=== PATIENT | male | born 1950 | race Caucasian/White ===

== ENCOUNTER 2017-04-13 12:08 | Observation (INO) | payer OTHER ==
[~2017-04-13] VITALS: Ht 177.8 cm; Wt 89.1 kg
[2017-04-13 12:12] VITALS: BP 153/89; PULSE 62; RESP 18; O2SAT 98
--- NOTE | 2017-04-13 12:27 | ED.REPORT ---
HPI-Extremity Problem Upper Date of Service Apr 13, 2017 ED Provider: Kirill Yang MD History of Present Illness: Patient is sent in from the office by the orthopedist Dr. Nina for admission to the hospitalist service for IV antibiotics Pt is a generally healthy 66 y/o male w/ a hx of MRSA presenting to the ED c/o left elbow redness, swelling, and pain onset 5 days ago. He denies any recent trauma or apparent injury or other cause of his symptoms. The patient went to see orthopedist Dr. Nina earlier today who took wound cultures and told the patient to come to the ED for admission with plan for IV antibiotics. He had something similar occur in a right finger before. Pt denies fever, chills, diaphoresis, numbness or weakness of the arm. He denies recent antibiotic use or infection otherwise. The patient is right-handed. He has been experiencing ongoing orthopnea for which he has spoken with his PCP Dr. Stanton about for which he was referred to cardiology for an echocardiogram. Nursing Notes Stated Complaint: ELBOW CELLULITIS Chief Complaint: Extremity Trauma Nursing Notes Reviewed: Yes ([employer] not reconciled) Allergies: Coded Allergies: cephalexin (Verified Allergy, Unknown, 04/13/17) latex (Verified Allergy, Unknown, PROLONGED EXPOSURE, 08/28/09) tetracycline (Verified Allergy, Unknown, 08/28/09) General Time Seen by MD: 12:25 Chief Complaint Other (L elbow infection) Hx Obtained From: Patient Arrived By: Walk-in Onset Occurred: 5 days ago Symptom Duration: Since onset Location: : Elbow left Quality: Painful Severity: Current: Mild Severity: Maximum: Moderate Recent Healthcare: No recent hospitalization, Recent doctor visit Similar Sx Previous: No Past Medical History Past Medical History Hx MRSA Asthma Arthritis Past Surgical History Hernia Partial finger amputation Smoking History Never Smoker Social History Alcohol Use: 1-3 per week Drug Use: Denies drug use Ambulatory Status Independent Review of Systems Basic Review of Systems Respiratory: No shortness of breath, No cough, No wheeze GI: No abdominal pain, No nausea, No vomiting Hematologic: No bleeding, No bruising Constitutional: Denies: Chills, Fever Musculoskeletal: Reports: Joint pain, Joint swelling Skin: Reports Rash, Reports Swelling, Denies Diaphoresis, Denies Itching Neurologic: Denies: Numbness, Weakness Complete sys rev & neg: except as marked. Cardiovascular: Reports: Orthopnea, Denies: Chest pain Physical Exam Initial Vital Signs Vital Signs (First) Date Time Temp Pulse Resp B/P Pulse Ox O2 Delivery O2 Flow Rate FiO2 04/13/17 12:12 36.3 62 18 153/89 98 Initial VS: Reviewed, Vital signs normal Head / Eyes: Atraumatic, Normocephalic, PERRL ENT: Mucous membranes moist, Conjunctiva normal, No scleral icterus Neck: Supple, Full range of motion Respiratory: Breath sounds normal, Clear to auscultation, No respiratory distress Cardiovascular: Regular rate & rhythm, Heart sounds normal, Intact distal pulses Abdomen / GI: Soft, No distention Lower Extremities: Vascular intact, Neuro intact, No swelling, No tenderness Skin: Warm, Dry, No cyanosis Neurologic: Alert, Oriented, Nonfocal Psychiatric: Mood/affect normal, Behavior normal, Normal thought content General/Constitutional: Awake, Alert, No acute distress, Well appearing, Cooperative, Not toxic appearing Upper Extremity / MS: Atraumatic, Full range of motion, No snuffbox tenderness , No deformity, Neurologic intact, Vascular intact, No compartment syndrome, No clubbing/cyanosis Moderate septic bursa on left with surrounding cellulitis. Tapped by ortho earlier today. No signs of retained FB. Interpretation & Diagnostics Lab Results Interpretation Result Diagram: 04/13/17 1246 Test 04/13/17 12:46 White Blood Count 5.3th/mm3 (3.8-10.1) Red Blood Count 4.39mil/mm3 (4.40-5.80) Hemoglobin 14.6g/dL (13.8-17.2) Hematocrit 41.4% (41.0-50.0) Mean Corpuscular Volume 94.3fL (81-100) Mean Corpuscular Hemoglobin 33.3pg (27.0-35.0) Mean Corpuscular Hemoglobin Concent 35.3% (32.0-37.0) Red Cell Distribution Width 12.1% (12.3-15.4) Platelet Count 149bil/L (150-400) Neutrophils (%) (Auto) 75.1% (40-74) Lymphocytes (%) (Auto) 11.3% (14-46) Monocytes (%) (Auto) 12.6% (4-12) Eosinophils (%) (Auto) 0.6% (0-5) Basophils (%) (Auto) 0.4% (0-3) Re-Eval/Medical Decision Med Decision/Clinical Course This is a 66-year-old right-hand dominant male presents from the orthopedist office with a request for admission to the hospitalist service for parenteral antibiotics for treatment of a left septic olecranon bursitis. Patient does not recall specific trauma to the left elbow, but has been having pain and swelling over the past several days, he is also pulled some carbon fibers out of the elbow, although reports that In other places that he gets exposed to at work without a rajesh infection. He does not recall a specific traumatic injury or event. He denies rajesh fevers or chills. He was seen in urgent care as well as by the orthopedist has had negative radiographs, and orthopedist is tapped the bursa today, and sent the patient in for admission to the hospitalist service for IV antibiotic. The patient has no additional complaints and clinically appears well. He has normal vitals and is not toxic. Does have moderate septic bursitis of the left elbow. I do not appreciate any evidence of joint involvement. Bursa has already been tapped as an outpatient prior to arrival, and cultures and labs are pending. The patient's previous history of MRSA being treated with Zosyn plus vancomycin and is being admitted for further management. Source of Hx: Old records Re-Evaluation/Progress : Time of Eval: 12:42 Re-Evaluation/Progress Note: Pt rechecked. Informed pt of need for admission. Pt understands and agrees with need for admission. All questions addressed. Consultation : Referral / Consult Name: Suzie Mckeon MD Consulted With: Hospitalist Call Returned at: 13:06 International Sales Representative: Will see patient, Agrees with eval, Agrees with plan, Accepts admit Differential Diagnosis: Positive: Cellulitis, Negative: Abrasion, Fracture, Metacarpal fracture, Neurovascular injury, Olecranon fracture, Open fracture, Partial amputation Counseled Regarding: Diagnosis, Lab results, Need for admission Discharge & Departure Impression: Primary Impression: Septic olecranon bursitis of left elbow Disposition: ADMITTED TO HOSPITAL Discharge Condition All VS Reviewed: Yes Condition: Stable Referrals: Rudy Stanton MD (PCP) Florentin Nina MD Scribe Attestation Portions of this note were transcribed by Tuan Mckee. I, Dr. Yang personally performed the history, physical exam and medical decision-making; I reviewed and confirmed the accuracy of the information in the transcribed note. Signed by Mustapha Montesinos, 04/13/17 - [id number] copies to: Florentin Nina MD; Rudy Stanton MD, Matthew F MD Apr 13, 2017 12:27 TUAN MCKEE Apr 13, 2017 12:35
[2017-04-13] MEDS ORDERED: Vancomycin Dose per Pharmacist XX ONE (12:40)
[2017-04-13] MEDS ORDERED: Piperacillin-Tazo 3.375 Gm Inj 3.375 GM in Dextrose 5% Minibag Plus 50 ML IV ONE (12:40)
[2017-04-13] MEDS ORDERED: Ondansetron 2 mg/mL 2 mL Inj IVPUSH ONE (12:45)
[2017-04-13] MEDS ORDERED: HYDROmorphone 0.5 mg/0.5 mL iSecure Syringe IVPUSH PRN (12:45)
[2017-04-13] MEDS ORDERED: Vancomycin Inj 1,750 MG in 0.9% Sodium Chloride 500 ML IV ONE (12:48)
[2017-04-13 12:50] LABS: BASOPHILS % (AUTO) 0.4 % (0-3); EOSINOPHILS % (AUTO) 0.6 % (0-5); MONOCYTES % (AUTO) 12.6 % (4-12); Mean Corpuscular Hemoglobin 33.3 pg (27.0-35.0); Mean Corpuscular Volume 94.3 fL (81-100); NEUTROPHILS % (AUTO) 75.1 % (40-74); Platelet Count 149 bil/L (150-400)
--- NOTE | 2017-04-13 12:51 | PCM.PHAPRO ---
Progress Patient is a 66 y.o. male receiving vancomycin for cellulitis mrsa hx. Based on patient parameters vancomycin will receive a one-time dose of 1750 mg Please reconsult pharmacy if the patient is admitted and you wish for vancomycin therapy to continue. Thank you for the consult in the care of this patient. RTM Daniel Nuno Pharm.D Apr 13, 2017 12:51
[2017-04-13] MEDS ORDERED: Ondansetron 2 mg/mL 2 mL Inj IVPUSH PRN (13:10)
[2017-04-13] MEDS: Vancomycin Dose per Pharmacist XX SCH (13:10)
--- NOTE | 2017-04-13 13:58 | PCM.HPMED ---
Subjective Date of Service Apr 13, 2017 Primary Provider: Admitting Physician: Suzie Mckeon MD Primary Care Physician: Rudy Stanton MD Attending Physician: Suzie Mckeon MD Chief Complaint: Left elbow pain, swelling History of Present Illness: 66-year-old male with no past medical history presented with left elbow pain for 5 days. Patient is working with coughing fibers. 5 days ago, after he finished working, patient noticed that his left elbow was scratched with black dots with carpal fibers, patient clinically with water, but he became little bit painful and swollen. Therefore patient took 2 tablets of ibuprofen 3 times per day, then took 3-4tabs depending on his sx, pt stopped taking 2days go thinking that swelling went down. Since last night, left elbow became more swollen, severe pins and needle sensation, decided to come to ortho clinic. Pt was seen by , suspected olecranon bursitis with surrounding cellulitis, epitrochlear LAD, recommended inpatient iv abx tx. Aspirates was sent to the labs. In ED VSS, afebrile, pt was not toxic looking. pt received one dose of vanc, zosyn. 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 pt developed severe burning sensation so he thought it was from keflex. However, pt didn't develop similar sx with abx with dental work(assumed it's PCN or 1st GEN cef) later. Of note, pt [place] , had minor finger lac, for which he took abx for a while, no surgery required but never was told he had MRSA. ROS: denied fever, chills, n/v, has some intermittent explosive diarrhea which was unusual for him, currently denied, denied abdominal pain, eating well with good appetite. Review of Systems: Pertinent positives as noted in history of present illness. All other systems were reviewed and are negative Allergies Coded Allergies: cephalexin (Verified Allergy, Unknown, 04/13/17) latex (Verified Allergy, Unknown, PROLONGED EXPOSURE, 04/13/17) tetracycline (Verified Allergy, Unknown, 04/13/17) Home Medications Ibuprofen as needed PMH As described above in history of present illness Surgical History Umbilical hernia surgery Left hand surgery from trauma Family History No history of CAD Social History Hx Alcohol Use: Yes (2-3 WK) Hx Substance Use: No Hx Tobacco Use: No Smoking Status: Never Smoker Additional Information lives at housing of [place] Exam Vital Signs Vital Sign - Last Date Time Temp Pulse Resp B/P Pulse Ox O2 Delivery O2 Flow Rate FiO2 04/13/17 12:12 36.3 62 18 153/89 98 Exam NAD, comfortably laying down on the bed no JVD, MMM, no LAD RRR, nl s1, s2 no mrg CTAB, no w,c S,ND,NT,normoactive BS+ LE: warm, no edema, pulses 2/2 Left elbow, swollen, tender olecranon bursa, no fluctuant, surrounding erythema , warm, LROM due to pain Lab and Diagnostics Result Diagram: 04/13/17 1246 04/13/17 1246 Assessment & Plan Acute, active Left elbow pain and swelling, POA, due to presumed olecranon bursitis/ cellulitis. No SIRS. -s/p vancomycin and zosyn, will continue vancomycin cover MRSA, Ceftriaxone as allergic reaction seemed unlikely -pain control with ketoprolac, tylenol, tramadol as needed -awaits culture from aspiration of bursa, BCX, trend CRP, daily exam for improvement -liberal oral intake, hydration, would not start IVF given stable hemodynamics dispo:Patient will be admitted with inpatient status with expectation of inpatient therapy for more than 2 midnights diet: Gen. dvt ppx:LMWH Full code Time spent 65min Suzie Mckeon MD Apr 13, 2017 13:58
[2017-04-13] MEDS ORDERED: HAWT150C PO (14:05)
[2017-04-13] MEDS ORDERED: ASCO100089 PO (14:05)
[2017-04-13] MEDS ORDERED: CHOL200047 PO (14:05)
[2017-04-13] MEDS ORDERED: MAGN100T6 PO (14:05)
[2017-04-13] MEDS ORDERED: MULT1CAP33 PO (14:05)
[2017-04-13] MEDS ORDERED: flaxseed meal PO (14:05)
[2017-04-13] MEDS ORDERED: COD473OI PO (14:05)
[2017-04-13] MEDS ORDERED: UBID100C16 PO (14:05)
[2017-04-13] MEDS ORDERED: VIT1TABL83 PO (14:05)
[2017-04-13 14:14] VITALS: BP 153/89; PULSE 62; RESP 18; O2SAT 98
[2017-04-13 15:00] VITALS: BP 153/85; PULSE 61; RESP 17; O2SAT 96
[2017-04-13] MEDS: HYDROcodone-APAP 5-325 mg Tablet PO PRN (15:34)
--- NOTE | 2017-04-13 17:12 | PCM.CONPHA ---
Subjective Date of Service: Apr 13, 2017 Left elbow pain, swelling Reason for Pharmacy Consult: Vancomycin Dosing Objective Vital Signs Date Time Temp Pulse Resp B/P Pulse Ox O2 Delivery O2 Flow Rate FiO2 04/13/17 14:14 36.3 62 18 153/89 98 04/13/17 12:12 36.3 62 18 153/89 98 Weight (Kilograms): 91.36 Height (Feet): 6 Height (Inches): 0 Test 04/13/17 12:46 White Blood Count 5.3th/mm3 (3.8-10.1) Red Blood Count 4.39mil/mm3 (4.40-5.80) Hemoglobin 14.6g/dL (13.8-17.2) Hematocrit 41.4% (41.0-50.0) Mean Corpuscular Volume 94.3fL (81-100) Mean Corpuscular Hemoglobin 33.3pg (27.0-35.0) Mean Corpuscular Hemoglobin Concent 35.3% (32.0-37.0) Red Cell Distribution Width 12.1% (12.3-15.4) Platelet Count 149bil/L (150-400) Neutrophils (%) (Auto) 75.1% (40-74) Lymphocytes (%) (Auto) 11.3% (14-46) Monocytes (%) (Auto) 12.6% (4-12) Eosinophils (%) (Auto) 0.6% (0-5) Basophils (%) (Auto) 0.4% (0-3) Erythrocyte Sedimentation Rate 9mm/hr (0-30) Sodium Level 138mEq/L (134-144) Potassium Level 3.8mEq/L (3.5-5.2) Chloride Level 103mEq/L (97-108) Carbon Dioxide Level 21mmol/L (18-29) Blood Urea Nitrogen 13mg/dL (8-27) Creatinine 0.69mg/dL (0.76-1.27) Estimat Glomerular Filtration Rate 122mL/min (>59) Glucose Level 137mg/dL (60-99) Calcium Level 9.2mg/dL (8.5-10.1) Total Bilirubin 0.7mg/dL (0.0-1.2) Aspartate Amino Transf (AST/SGOT) 18U/L (0-50) Alanine Aminotransferase (ALT/SGPT) 19U/L (0-44) Alkaline Phosphatase 59U/L (25-160) Total Protein 6.7g/dL (6.4-8.4) Albumin 3.6g/dL (3.4-5.0) Assessment/Plan Assessment/Plan VANCOMYCIN MANAGEMENT A\ 66YO M WITH OLECRANON BURSITIS w/ cellulitis also receiving Ceftriaxone SCr=0.69 GFR =115 WBC = 5.3 afebrile Vancomycin 1750mg IV x1 at 04/13 1335 P\ Will continue Vancomycin 1500mg IV Q12H with 1st dose at 04/14 0300 Will monitor Scr daily x3 days and check a vancomycin trough before the 4th dose 04/15 0230 thanks for the opportunity to consult. Chay Hogue [facility] Apr 13, 2017 17:12
[2017-04-13] MEDS: Ketorolac 15 mg/mL Inj IVPUSH PRN (19:38)
[2017-04-13 20:18] VITALS: BP 154/82; PULSE 69; RESP 17; O2SAT 98
[2017-04-13 20:46] VITALS: PULSE 61
[2017-04-13 23:01] VITALS: PULSE 67
[2017-04-14 00:35] VITALS: BP 157/89; PULSE 63; RESP 17; O2SAT 97
[2017-04-14] MEDS ORDERED: 0.9% Sodium Chloride 250 ML ONE (02:48)
[2017-04-14] MEDS: Vancomycin Inj 1,500 MG in 0.9% Sodium Chloride 500 ML IV SCH ×2 (02:56→15:05)
[2017-04-14 05:15] VITALS: BP 119/75; PULSE 59; RESP 17; O2SAT 97
[2017-04-14] MEDS: Ketorolac 15 mg/mL Inj IVPUSH PRN (05:50)
[2017-04-14 06:42] LABS: BASOPHILS % (AUTO) 0.4 % (0-3); EOSINOPHILS % (AUTO) 1.6 % (0-5); Mean Corpuscular Hemoglobin 33.5 pg (27.0-35.0); Mean Corpuscular Volume 96.4 fL (81-100); NEUTROPHILS % (AUTO) 63.2 % (40-74); Platelet Count 159 bil/L (150-400)
[2017-04-14 06:54] LABS: Magnesium 1.9 mg/dL (1.6-2.6); Phosphorus 3.2 mg/dL (2.5-4.9)
[2017-04-14] MEDS: cefTRIAXone Inj 2,000 MG in Dextrose 5% Minibag Plus 50 ML IV SCH (09:18)
[2017-04-14] MEDS: Vancomycin Dose per Pharmacist XX SCH (09:18)
[2017-04-14 10:07] VITALS: BP 96/60; PULSE 86; RESP 18; O2SAT 96
[2017-04-14 11:00] VITALS: PULSE 74
--- NOTE | 2017-04-14 11:47 | PCM.PNMED ---
Subjective Date of Service Apr 14, 2017 Subjective pain is controlled with ketorolac, remained afebrile, ESR was low from yesterday no leukocytosis, pain/swelling is coming down briefly spoke to , no further recs as per labs, no growth in culture, no crystal in microscope gram stain, cell count was not able to perform as it was only 0.5cc, put in the gel swab, lab is unable to retrieve more specimen Exam Vital Signs Vital Sign - Last Date Time Temp Pulse Resp B/P Pulse Ox O2 Delivery O2 Flow Rate FiO2 04/14/17 11:00 74 04/14/17 10:07 37.5 18 96/60 96 Room Air Intake and Output 04/13/17 04/13/17 04/14/17 Cumulative From/Thru 15:00 23:00 07:00 04/13/17 12:12 - 04/14/17 06:03 Intake Total 1127 ml 1314 ml 2441 ml Output Total 500 ml 1150 ml 1650 ml Balance 627 ml 164 ml 791 ml Intake Oral 550 ml 800 ml 1350 ml IV Total 577 ml 514 ml 1091 ml Output Urine Total 500 ml 1150 ml 1650 ml # Bowel Movements 0 0 0 Exam NAD, comfortably laying down on the bed no JVD, MMM, no LAD RRR, nl s1, s2 no mrg CTAB, no w,c S,ND,NT,normoactive BS+ LE: warm, no edema, pulses 2/2 Left elbow, swollen, tender olecranon bursa, no fluctuant, surrounding erythema , warm, LROM due to pain, improved from yesterday IVs and Medications Medications Reviewed: Medications were reviewed in detail Lab and Diagnostics Result Diagram: 04/14/17 0600 04/14/17 0600 Assessment & Plan Acute, active Left elbow pain and swelling, POA, due to presumed olecranon bursitis/ cellulitis. No SIRS. -pt clinically remained stable, no s/s of systemic infection. -s/p vancomycin and zosyn, continue vancomycin to cover MRSA, Ceftriaxone as allergic reaction seemed unlikely, likely switch to oral to cover staph/strep, clindamycin or bactrim on discharge -given negative culture so far, no crystal, will start NSAID naproxen 500 bid -pain control with tylenol, tramadol as needed -awaits final culture from aspiration of bursa, will verbally confirm with micro 5075 -liberal oral intake, hydration, would not start IVF given stable hemodynamics -appreciate ID input regarding regimen dispo: likely tomorrow diet: Gen. dvt ppx:LMWH Full code VTE Mechanical Devices: Intermittant Pneumatic CD Time spent 35min Suzie Mckeon MD Apr 14, 2017 11:47
--- NOTE | 2017-04-14 15:30 | CONS ---
[address] [address] CONSULTATION REPORT PATIENT: DICK FUENTES : 1950 MR#: [id number] ADMIT: 04/13/2017 JOB ID: [id number] DATE OF SERVICE: 04/14/2017 INFECTIOUS DISEASE CONSULTATION: I thank Dr. Mckeon for this timely consult. REASON FOR CONSULTATION: Olecranon bursitis, left-sided. HISTORY OF PRESENT ILLNESS: The patient is a generally extremely healthy 66-year-old gentleman who just returned to this area after an extended stay in the [facility] where he had been working for about the last three years. 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 As an occupational hazard, he occasionally gets carbon fibers under the skin which usually does not cause too much trouble other than some small soft-tissue injuries which usually heal without any problem. The patient noticed that about a week or so ago while working with the carbon fibers though he developed some left elbow pain. This was quite severe and in fact, caused him to wake up at night about a week ago with some what he described as fever and sweats. He then went to the bathroom and examined his elbow and surprised to see the little pustule that have been present over his left elbow had dramatically enlarged. He was able to express some grayish material out of the elbow and thought that he might have an infection. He cleaned it out well in the shower and started to dress the wound very carefully to try and prevent additional infection, and he did fairly well up until April 11 and when this started to get progressively worse with dramatic swelling of the left elbow. In association with his swollen left elbow, he developed quite a bit of pain right over the olecranon bursa area but never had any restriction of range of motion of the elbow itself. This pain was associated with dramatic erythematous swelling, and for that reason, he came in and was evaluated by ortho yesterday. Dr. Nina of Orthopedic Surgery evaluated him and performed an incision and drainage of the olecranon bursa sending a small sample of fluid for crystal evaluation as well as culture. No Gram stain was available. Dr. Nina was clearly concerned that this could represent infection and recommended the patient be started on antibiotics which at this point include vancomycin and ceftriaxone. The patient reports that since the I and D, there has been a decrease in the size and tenderness of the left olecranon bursa area. He reports that except for the one night about a week ago he never had any fevers, chills or sweats and that throughout this he has felt relatively well except for just the pain localized to the olecranon area. He has not had any cardiac, pulmonary or GI symptoms in association with the swollen left elbow but he has noted for some weeks now that he has had trouble sleeping lying flat and needs to stay up on multiple pillows. He has also noted that he is more short of breath with exertion lately but does not feel this is related to the elbow process. PAST MEDICAL HISTORY: 1. Status post umbilical hernia surgery. 2. Status post left hand trauma with surgery. 3. Olecranon bursitis this admission. SOCIAL HISTORY: The patient consumes a 2-5 beers per week. 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 He just spent three and half years in the [facility]. FAMILY HISTORY: Completely negative for TB in first and second degree relatives. REVIEW OF SYSTEMS: The patient has no headache or visual change. No sinus complaints, sore throat or trouble swallowing. He has not really had any cough but he has noted some mild dyspnea on exertion which is new over the last couple months. This is associated with orthopnea. There has been no chest pain, whether pleuritic or substernal. He has had not had nausea, vomiting or diarrhea. He has had no genitourinary complaints. Specifically, no dysuria, urgency or frequency. He has had no skin rash except that around his left elbow and has no history of gout or major joint issues.Remainder of the ROS was negative. PHYSICAL EXAMINATION: Reveals an afebrile gentleman, temperature 37.5. He has been afebrile since admission. Pulse 74, respiratory rate 18, blood pressure 96/60, saturating 96% on room air. His mental status is completely clear. Head without trauma. No sinus tenderness. No conjunctival or scleral abnormalities. Oral cavity without thrush, hairy leukoplakia or pharyngitis. Neck is supple. Lungs relatively clear bilaterally. I do not hear crackles at the bases. Cardiac tones with a generally regular rhythm but with occasional "dropped beats" about every five beats. No cardiac murmur or gallop is heard. Abdomen soft and nontender without organomegaly. No suprapubic fullness. No inguinal adenopathy. He does have epitrochlear adenopathy on the side of the olecranon bursitis which is on the left. With respect to the left upper extremity, the patient has full range of motion of the left upper extremity including at the elbow. He does have a tender pointing erythematous area extending directly over the olecranon bursa. No purulence can be expressed from this. The right upper extremity is benign. Both lower extremities benign. Normal pulses. No cellulitis. No edema. Neurologically the patient is intact. LABORATORIES: Include a white count 6000 with 14% monocytes. Otherwise negative. Sed rate 9. Creatinine 0.83. MRSA PCR of the nares is pending. I spoke to the lab and they did receive about 1/2 a cc of fluid from yesterday's olecranon procedure. The crystal studies are negative and the culture is pending. There was not enough fluid to do Gram stain as well as cultures. IMAGING: Includes the elbow x-ray from the which was yesterday that does not show bony erosions. IMPRESSION: This patient has olecranon bursitis. This could be crystal induced though I see no evidence of that based on the crystal studies. It could also be a septic olecranon bursa and that seems most likely. A third possibility is that this is strictly a sterile inflammatory reaction due to the carbon fibers which may have been inadvertently inoculated into this bursa. A noninfectious olecranon bursitis is fairly common. RECOMMENDATIONS: 1. I would continue with vanc, ceftriaxone overnight while we await the MRSA screen as well as the cultures from the bursa. 2. Because of the patient's complaints of orthopnea, I think it is reasonable to move up an outpatient echo which had been scheduled for a couple weeks from now and I have ordered that to be done at this time. 3. It is also notable the patient has an appointment with Dr. Smith currently scheduled for the [facility] coming up in a week or two so the echocardiogram done here may speed up and facilitate that evaluation. KAMERON
--- NOTE | 2017-04-14 16:14 | PCM.PNORTH ---
Subjective Date of Service: Apr 14, 2017 Visit Information: Reason for Visit Left Septic Olecranon Bursitis Surgery/Surgery Date Post-Op Day # Date of Admission: Apr 13, 2017 at 13:14 Hospital Day # Subjective Patient is status post day 1 from left olecranon bursa aspiration. Patient states he is doing well and his redness is decreasing, feels a little better. Postop General: No Complaints, No Shortness of Breath, No Chest Pain Objective Exam Objective Patient is alert and oriented 3. Sitting up and 9 acute distress. Patient able to wiggle fingers of the left hand, sensation and pulses intact. Patient does have erythema approximately 3 cm round over the tip of the olecranon, this is decreased compared to the ink marking from yesterday. Patient able to fully extend the elbow with mild discomfort and been to approximately 120 with minimal discomfort. No pus from the aspiration site. Vital Signs and I/O Vital Sign - Last Date Time Temp Pulse Resp B/P Pulse Ox O2 Delivery O2 Flow Rate FiO2 04/14/17 11:00 74 04/14/17 10:07 37.5 18 96/60 96 Room Air Intake and Output 04/13/17 04/13/17 04/14/17 Cumulative From/Thru 14:59 22:59 06:59 04/13/17 12:12 - 04/14/17 06:03 Intake Total 1127 ml 1314 ml 2441 ml Output Total 500 ml 1150 ml 1650 ml Balance 627 ml 164 ml 791 ml Intake Oral 550 ml 800 ml 1350 ml IV Total 577 ml 514 ml 1091 ml Output Urine Total 500 ml 1150 ml 1650 ml # Bowel Movements 0 0 0 Lab & Micro Results Laboratory Tests Test 04/14/17 06:00 White Blood Count 5.6th/mm3 (3.8-10.1) Red Blood Count 4.42mil/mm3 (4.40-5.80) Hemoglobin 14.8g/dL (13.8-17.2) Hematocrit 42.6% (41.0-50.0) Mean Corpuscular Volume 96.4fL (81-100) Mean Corpuscular Hemoglobin 33.5pg (27.0-35.0) Mean Corpuscular Hemoglobin Concent 34.7% (32.0-37.0) Red Cell Distribution Width 12.4% (12.3-15.4) Platelet Count 159bil/L (150-400) Neutrophils (%) (Auto) 63.2% (40-74) Lymphocytes (%) (Auto) 20.6% (14-46) Monocytes (%) (Auto) 14.0% (4-12) Eosinophils (%) (Auto) 1.6% (0-5) Basophils (%) (Auto) 0.4% (0-3) Sodium Level 141mEq/L (134-144) Potassium Level 4.4mEq/L (3.5-5.2) Chloride Level 107mEq/L (97-108) Carbon Dioxide Level 24mmol/L (18-29) Blood Urea Nitrogen 13mg/dL (8-27) Creatinine 0.83mg/dL (0.76-1.27) Estimat Glomerular Filtration Rate 99mL/min (>59) Glucose Level 115mg/dL (60-99) Calcium Level 9.0mg/dL (8.5-10.1) Phosphorus Level 3.2mg/dL (2.5-4.9) Magnesium Level 1.9mg/dL (1.6-2.6) Total Bilirubin 0.6mg/dL (0.0-1.2) Aspartate Amino Transf (AST/SGOT) 14U/L (0-50) Alanine Aminotransferase (ALT/SGPT) 17U/L (0-44) Alkaline Phosphatase 59U/L (25-160) Total Protein 6.2g/dL (6.4-8.4) Albumin 3.6g/dL (3.4-5.0) Procalcitonin 0.03ng/mL (0.00-0.08) Microbiology 04/14/17 MRSA (PCR), Received Pending Result Diagram: 04/14/17 0600 04/14/17 0600 Assessment & Plan Impression Status post day 1 from left elbow/olecranon bursa aspiration. Patient doing well. Problems: Plan Patient doing well and has no limitations as far as the elbow is concerned. Recommend to continue antibiotics until this is cleared and transferred to outpatient oral antibiotics as appropriate. No culture results at this time, aspirin appeared clear and do not expect yield , most likely cellulitis. When discharged, recommend follow-up at 2 weeks at [facility] with Nakul Good PA-C Apr 14, 2017 16:14
[2017-04-14 20:00] VITALS: PULSE 76
[2017-04-14 20:05] VITALS: BP 145/78; PULSE 68; RESP 17; O2SAT 96
[2017-04-14] MEDS: HYDROcodone-APAP 5-325 mg Tablet PO PRN (20:28)
[2017-04-15 00:06] VITALS: BP 139/72; PULSE 60; RESP 17; O2SAT 98
[2017-04-15] MEDS ORDERED: Vancomycin Serum Trough XX ONE (02:30)
[2017-04-15 02:33] VITALS: PULSE 51
[2017-04-15] MEDS ORDERED: 0.9% Sodium Chloride 250 ML ONE (03:00)
[2017-04-15] MEDS: Vancomycin Inj 1,500 MG in 0.9% Sodium Chloride 500 ML IV SCH (03:11)
[2017-04-15 05:00] VITALS: BP 139/80; PULSE 59; RESP 17; O2SAT 95
--- NOTE | 2017-04-15 06:53 | PCM.PHAPRO ---
Progress Date of Service: Apr 15, 2017 Requesting Provider: Suzie Mckeon MD Left elbow pain, swelling Olecranon bursitis with cellulitis A/ - 66 y/o male patient on 2nd days of Vancomycin (1500mg iv q12h) and ceftriaxone for olecranon bursitis with cellulitis - Received I&D on 04/14. MRSA PCR is negative; however aspirate from the wound is pending - Dr. Mercer, ID specialist follows - Trough level is close @9.7 to the target range of 10-15. Doses were administered on time, and trough drawn appropriately P/ - Considering the risk of medication accumulation, continue with current regimen of Vancomycin 1.5G iv q12 Pharmacy will continue to follow daily Thank you Bret Valencia Apr 15, 2017 06:53
[2017-04-15 08:16] LABS: BASOPHILS % (AUTO) 0.5 % (0-3); EOSINOPHILS % (AUTO) 2.5 % (0-5); Mean Corpuscular Hemoglobin 32.8 pg (27.0-35.0); Mean Corpuscular Volume 95.5 fL (81-100); NEUTROPHILS % (AUTO) 57.6 % (40-74); Platelet Count 146 bil/L (150-400)
[2017-04-15] MEDS: Vancomycin Dose per Pharmacist XX SCH (08:30)
[2017-04-15] MEDS: cefTRIAXone Inj 2,000 MG in Dextrose 5% Minibag Plus 50 ML IV SCH (09:29)
[2017-04-15 09:30] VITALS: BP 154/85; PULSE 71; RESP 16; O2SAT 97
--- NOTE | 2017-04-15 10:05 | PCM.PNORTH ---
Subjective Date of Service: Apr 15, 2017 Visit Information: Reason for Visit Left Septic Olecranon Bursitis Surgery/Surgery Date Post-Op Day # Date of Admission: Apr 13, 2017 at 13:14 Hospital Day #03 Subjective Hospital Day #3 s/p left elbow aspiration of olecranon bursa. Patient states the elbow is painful. It is worse at full extension or flexion. He had an echocardiogram yesterday and the elbow was more painful after that due to positioning of the left arm. Patient is currently on vancomycin and ceftriaxone. Postop General: No Complaints, No Shortness of Breath, No Chest Pain Pain Management: PO Objective Exam Objective Patient is seen sitting up in bed. He is alert, oriented and cooperative to exam. Normal mood and affect. Afebrile. There is 3 x 4 cm region of erythema and swelling at the olecranon bursa. It is warm to the touch. There is no drainage present. Range of motion is equal to 10-120 with pain at the end range of motion. Sensation is intact to light touch distally. Radial pulses 2+ . Vital Signs and I/O Vital Sign - Last Date Time Temp Pulse Resp B/P Pulse Ox O2 Delivery O2 Flow Rate FiO2 04/15/17 09:30 36.3 71 16 154/85 97 Room Air Intake and Output 04/14/17 04/14/17 04/15/17 Cumulative From/Thru 15:00 23:00 07:00 04/13/17 12:12 - 04/15/17 05:37 Intake Total 2847 ml 1604 ml 6892 ml Output Total 1935 ml 2000 ml 5585 ml Balance 912 ml -396 ml 1307 ml Intake Oral 2065 ml 1120 ml 4535 ml IV Total 782 ml 484 ml 2357 ml Output Urine Total 1935 ml 2000 ml 5585 ml # Bowel Movements 0 0 0 Lab & Micro Results Laboratory Tests Test 04/15/17 02:15 04/15/17 07:58 Vancomycin Level Trough 9.7mcg/mL White Blood Count 4.0th/mm3 (3.8-10.1) Red Blood Count 4.24mil/mm3 (4.40-5.80) Hemoglobin 13.9g/dL (13.8-17.2) Hematocrit 40.5% (41.0-50.0) Mean Corpuscular Volume 95.5fL (81-100) Mean Corpuscular Hemoglobin 32.8pg (27.0-35.0) Mean Corpuscular Hemoglobin Concent 34.3% (32.0-37.0) Red Cell Distribution Width 12.1% (12.3-15.4) Platelet Count 146bil/L (150-400) Neutrophils (%) (Auto) 57.6% (40-74) Lymphocytes (%) (Auto) 23.2% (14-46) Monocytes (%) (Auto) 16.0% (4-12) Eosinophils (%) (Auto) 2.5% (0-5) Basophils (%) (Auto) 0.5% (0-3) Sodium Level 142mEq/L (134-144) Potassium Level 4.1mEq/L (3.5-5.2) Chloride Level 107mEq/L (97-108) Carbon Dioxide Level 24mmol/L (18-29) Blood Urea Nitrogen 12mg/dL (8-27) Creatinine 0.82mg/dL (0.76-1.27) Estimat Glomerular Filtration Rate 100mL/min (>59) Glucose Level 103mg/dL (60-99) Calcium Level 8.8mg/dL (8.5-10.1) Total Bilirubin 0.5mg/dL (0.0-1.2) Aspartate Amino Transf (AST/SGOT) 12U/L (0-50) Alanine Aminotransferase (ALT/SGPT) 14U/L (0-44) Alkaline Phosphatase 54U/L (25-160) Total Protein 5.8g/dL (6.4-8.4) Albumin 3.3g/dL (3.4-5.0) Procalcitonin 0.03ng/mL (0.00-0.08) Microbiology 04/14/17 MRSA (PCR) - Final, Complete Result Diagram: 04/15/17 0758 04/15/17 0758 Catheters: None Assessment & Plan Impression Left elbow septic olecranon bursitis Problems: Plan Recommend to continue rest of left upper extremity Continue antibiotics per Dr. Mercer until this is cleared and transferred to outpatient oral antibiotics as appropriate. No culture results at this time, aspirate appeared clear and do not expect yield , most likely cellulitis. MRSA by PCR nasal swab was negative. When discharged, recommend follow-up at 2 weeks at [facility] with Dr. Florentin Nina. Pain Management: Allen, naproxen VTE Prophylaxis: Sub-Q Enoxaparin Aniya Franco PA-C Apr 15, 2017 10:05
--- NOTE | 2017-04-15 10:28 | DRSVH ---
Formerly [facility] [address] [place] [address] Echocardiogram Report Name: DICK FUENTES Date: Height: 72 in Hospital Exam Location: [facility] Weight: 201 lb Gender: Male BSA: 2. 1 m2 : 1950 Age: 66 yrs BP: 96/ 60 mmHg Reason For Study: Congestive Heart Failure Ordering Physician: HOSPITALIST [facility] Performed By: Leslye Jiang Referring Physician: Dr. Rudy Stanton Interpretation Summary The left ventricle is normal in size. The ejection fraction is estimated to be 60-65%. The right ventricle is normal size. The right ventricular systolic function is normal. There is mild aortic regurgitation. The ascending aorta is mildly enlarged. Procedure: A two-dimensional transthoracic echocardiogram with color flow and Doppler was performed. The study quality was technically adequate. There is no prior echocardiogram noted for this patient. The heart rate ranged between 64-70 bpm during the study. The patient was in normal sinus rhythm during the exam. The patient had frequent PVCs during the exam. Left Ventricle: The left ventricle is normal in size. Proximal septal thickening is noted. There is no echo evidence for significant left ventricular outflow tract obstruction. There is no thrombus. The ejection fraction is estimated to be 60-65%. Septal motion is consistent with conduction abnormality. Spectral Doppler of the mitral valve is reversed, with an E/A wave ratio < 1.0. Right Ventricle: The right ventricle is normal size. The right ventricular systolic function is normal. Atria: The left atrium is moderately dilated. Right atrial size is normal. The interatrial septum is intact with no evidence for an atrial septal defect. The thickening of interatrial septum suggests lipomatous hypertrophy. Mitral Valve: The mitral valve leaflets are slightly calcified. There is systolic anterior motion of the chordal apparatus. There is trace mitral regurgitation. Aortic Valve: The aortic valve is trileaflet. The aortic valve opens well. There is no aortic valve stenosis. There is mild aortic regurgitation. Tricuspid Valve: The tricuspid valve is normal in structure and function. There is trace tricuspid regurgitation. Pulmonary artery pressures cannot be estimated because of the lack of a measurable TR jet velocity. Pulmonic Valve: The pulmonic valve is not well seen, but is grossly normal. There is trace pulmonic regurgitation. Great Vessels: The aortic root is normal size. The ascending aorta is mildly enlarged. The IVC is of normal diameter and collapses greater than 50% with a sniff. This suggests a low right atrial pressure of 3 mm Hg. Pericardium/ Pleura There is no pericardial effusion. There is no pleural effusion. MMode/2D Measurements & Calculations LVIDd: 5.5 cm LA dimension: 4.1 cm RA long axis Ao root diam LVIDs: 3.4 cm FS: 39.0 % LA A2 area: 27.1 cm RA area Aortic Jxn: 3.0 cm IVSd: 1.2 cm LA A4 area: 22.9 cm asc Aorta Diam LVPWd: 0.88 cm LA length (vol) : 20.0 cm RA vol Ao Arch Diam (Prox LA vol: 96.1 ml : 65.6 ml Trans): 2.8 cm LA vol index RA : 30.7 mm/ RVDd major IVC diam: 1.7 cm : 5.9 cm LV eli. diameter/BSA LV sys. diameter/BSA RVD1 (basal) RVD2 (mid): 2.5 cm (cm/m^2): 2.6 (cm/m^2): 1.6 Doppler Measurements & Calculations Ao V2 max MV E max amparo MV E/A: 0.98 PA V2 max : 146.1 cm/sec : 84.1 cm/sec MV A dur: 0.16 sec : 73.5 cm/sec Ao max PG MV A max amparo PA mean PG : 8.5 mmHg : 86.2 cm/sec Ao mean PG MV P1/2t: 48.8 msec PA Accel Time : 4.3 mmHg : 0.26 sec MV dec time MV P1/2t max amparo Ao V2 mean PA V2 mean : 0.17 sec : 96.4 cm/sec : 45.1 cm/sec MVA(P1/2t): 4.5 cm2 Ao V2 VTI: 31.4 cm Reading Physician:ABBI
[2017-04-15 10:35] VITALS: PULSE 74
--- NOTE | 2017-04-15 11:51 | PROG NOTE ---
[address] [address] PROGRESS NOTE PATIENT: DICK FUENTES : 1950 MR#: [id number] ADMIT: 04/13/2017 JOB ID: [id number] INFECTIOUS DISEASE FOLLOWUP: DATE: 04/15/2017 REASON FOR FOLLOWUP: Left olecranon bursitis, probably septic. INTERVAL HISTORY: The patient continues to have a significant amount of swelling and pain in his left olecranon region. He has no fevers or chills however. No shortness of breath. No nausea, vomiting, diarrhea. PHYSICAL EXAMINATION: Temp 36.3, blood pressure 154/85, pulse 75, respiratory rate 16, he is saturating well on room air. He is in no acute distress. Lungs are clear. Cardiac tones still with the regular underlying rhythm with skipped or dropped beats every 4 or 5 beats. This is not changed from yesterday, and in fact, it sounds like it is a permanent condition. His abdomen is benign. His left elbow is swollen, tender at the olecranon with full range of motion of the elbow however and no purulent drainage. LABORATORY DATA: Labs include white count 4000. His creatinine is 0.82. His LFTs are normal. MRSA screen of the nares negative. Cultures of the elbow were negative at 24 hours, and the lab was having a great deal of trouble finding the plates now to re-examine them so I am waiting for that report. Ortho was seeing the patient again and think he is ready for discharge from their point of view. It is recommended he follow up in two weeks with Dr. Nina. IMPRESSION: Olecranon bursitis, probably septic and related to carbon fibers that were inserted into his elbow inadvertently at work. At this point, we do not have a positive culture but I am waiting for an update from the lab. RECOMMENDATIONS: 1. Assuming that we have negative cultures, I would prefer to send the patient out on an oral antibiotic that would give good staph and strep coverage. Linezolid would be the best option I think at is 600 p.o. q.12 h. for 10 days. If his insurance will not pay for this, I would use clindamycin 300 mg p.o. 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 2. From an Infectious Disease point of view, the patient can be discharged but we are just waiting at this point for that culture result.
[2017-04-15] MEDS ORDERED: NAPR250T PO (13:31)
[2017-04-15] MEDS ORDERED: LINE600I IV (13:31)
[2017-04-15] MEDS ORDERED: PANT20TA2 PO (13:31)
--- NOTE | 2017-04-15 13:35 | PCM.DIMED ---
Discharge Instructions Date of Service Apr 15, 2017 Dates of Hospitalization Apr 13, 2017 at 13:14 Discharge Diagnosis Discharge Diagnosis Left Olecrenon bursitis, cellulitis Medication Instructions Additional med instructions Please take Linezolid 600mg twice a day for 10days. If this medicine cannot be covered then, take instead clindamycin 300mg four times per day for 10days. Please take Naproxen 500mg twice a day, You can take Pantoprazole 20mg daily with naproxen to avoid gastric ulcer if you become symptomatic. Diet Discharge Diet: No restrictions Activity Discharge Activity: No restrictions Call your provider Call your provider for: Fever or Chills Patient Instructions Patient Instructions You were hospitalized with elbow swelling, pain. You were treated with IV antibiotics and remained stable. Although the result of culture was negative, you improved with antibiotics and anti-inflammatory medicine. Please continue medicine as instructed above Please follow up with in 2weeks in the Orthopedic clinic. Follow-up Provider: Florentin Nina MD Follow-up with PCP in: 2 weeks Suzie Mckeon MD Apr 15, 2017 13:35
[2017-04-15 13:48] VITALS: BP 147/85; PULSE 77; RESP 16; O2SAT 96
[2017-04-15] MEDS ORDERED: OXYC1TAB24 PO (14:10)
[2017-04-15] MEDS ORDERED: LINE600T7 PO (14:17)
[2017-04-15] MEDS ORDERED: CLIN-78 PO (14:50)
--- NOTE | 2017-04-16 13:17 | PCM.DC.MED ---
Discharge Summary Date of Service Apr 15, 2017 Dates of Hospitalization Date of Hospital Admission Apr 13, 2017 at 13:14 Date of Discharge: Apr 15, 2017 Providers: Admitting Physician: Lotus Forde MD Primary Care Physician: Rudy Stanton MD Attending Physician: Lotus Forde MD Diagnosis at Time of Discharge Diagnosis at Time of Discharge Left Olecrenon bursitis, cellulitis Consultations ID Brief History HPI obtained on 04/15 66-year-old male with no past medical history presented with left elbow pain for 5 days. Patient is working with coughing fibers. 5 days ago, after he finished working, patient noticed that his left elbow was scratched with black dots with carpal fibers, patient clinically with water, but he became little bit painful and swollen. Therefore patient took 2 tablets of ibuprofen 3 times per day, then took 3-4tabs depending on his sx, pt stopped taking 2days go thinking that swelling went down. Since last night, left elbow became more swollen, severe pins and needle sensation, decided to come to ortho clinic. Pt was seen by , suspected olecranon bursitis with surrounding cellulitis, epitrochlear LAD, recommended inpatient iv abx tx. Aspirates was sent to the labs. In ED VSS, afebrile, pt was not toxic looking. pt received one dose of vanc, zosyn. 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 pt developed severe burning sensation so he thought it was from keflex. However, pt didn't develop similar sx with abx with dental work(assumed it's PCN or 1st GEN cef) later. Of note, [place] , had minor finger lac, for which he took abx for a while, no surgery required but never was told he had MRSA. ROS: denied fever, chills, n/v, has some intermittent explosive diarrhea which was unusual for him, currently denied, denied abdominal pain, eating well with good appetite. Hospital Course Acute dx Left elbow pain and swelling, likely due to presumed olecranon bursitis/ cellulitis. No SIRS on admission. Patient remained HD stable, afebrile throughout hospitalization. pt received vancomycin and zosyn in ED, continued vancomycin to cover MRSA and Ceftriaxone. pt tolerated well w/o allergic reaction. Culture from aspiration in Ortho clinic, remained negative after 2days , crystal was not found. Cell count/gram stain were not obtained given limited amount. Patient clinically improved with abx and Naproxen as well. Plan is to continue oral abx either Linezolid or clindamycin for 10more days as per ID recommendation. Patient will continue Naproxen with PPI as well. Given improving exam findings, no systemic signs of infection, pt deemed safe for d/ c. Final result of culture was still pending as it was sent out to [place], patient was asked to follow up with in 2weeks for the result. Exam Vital Signs (Last) Date Time Temp Pulse Resp B/P Pulse Ox O2 Delivery O2 Flow Rate FiO2 04/15/17 13:48 36.6 77 16 147/85 96 Room Air Exam NAD, comfortably laying down on the bed no JVD, MMM, no LAD RRR, nl s1, s2 no mrg CTAB, no w,c S,ND,NT,normoactive BS+ LE: warm, no edema, pulses 2/2 Left elbow, swollen, tender olecranon bursa, no fluctuant, surrounding erythema , warm, LROM due to pain, improved from yesterday Test 04/13/17 12:46 04/14/17 06:00 04/15/17 02:15 04/15/17 07:58 Erythrocyte Sedimentation Rate 9mm/hr (0-30) Phosphorus Level 3.2mg/dL (2.5-4.9) Magnesium Level 1.9mg/dL (1.6-2.6) Vancomycin Level Trough 9.7mcg/mL White Blood Count 4.0th/mm3 (3.8-10.1) Red Blood Count 4.24mil/mm3 (4.40-5.80) Hemoglobin 13.9g/dL (13.8-17.2) Hematocrit 40.5% (41.0-50.0) Mean Corpuscular Volume 95.5fL (81-100) Mean Corpuscular Hemoglobin 32.8pg (27.0-35.0) Mean Corpuscular Hemoglobin Concent 34.3% (32.0-37.0) Red Cell Distribution Width 12.1% (12.3-15.4) Platelet Count 146bil/L (150-400) Neutrophils (%) (Auto) 57.6% (40-74) Lymphocytes (%) (Auto) 23.2% (14-46) Monocytes (%) (Auto) 16.0% (4-12) Eosinophils (%) (Auto) 2.5% (0-5) Basophils (%) (Auto) 0.5% (0-3) Sodium Level 142mEq/L (134-144) Potassium Level 4.1mEq/L (3.5-5.2) Chloride Level 107mEq/L (97-108) Carbon Dioxide Level 24mmol/L (18-29) Blood Urea Nitrogen 12mg/dL (8-27) Creatinine 0.82mg/dL (0.76-1.27) Estimat Glomerular Filtration Rate 100mL/min (>59) Glucose Level 103mg/dL (60-99) Calcium Level 8.8mg/dL (8.5-10.1) Total Bilirubin 0.5mg/dL (0.0-1.2) Aspartate Amino Transf (AST/SGOT) 12U/L (0-50) Alanine Aminotransferase (ALT/SGPT) 14U/L (0-44) Alkaline Phosphatase 54U/L (25-160) Total Protein 5.8g/dL (6.4-8.4) Albumin 3.3g/dL (3.4-5.0) Procalcitonin 0.03ng/mL (0.00-0.08) Discharge Medications Discharge Medications ([flaxseed meal]) 2 TBS PO DAILY (Reported) Ascorbic Acid (Vitamin C) 1,000 Mg Tab.chew 1,000 MG PO DAILY (Reported) Cholecalciferol (Vitamin D3) (Vitamin D3) 2,000 Unit Capsule 2,000-5,000 UNIT PO DAILY (Reported) Clindamycin (Clindamycin) 300 Mg Capsule 300 MG PO QID Prescribed by: LOTUS FORDE MD Cod Liver Oil (Cod Liver Oil) 473 Ml Oil 1 TBS PO DAILY (Reported) [place] (Woodbridge) 150 Mg Capsule 300 MG PO BID (Reported) Linezolid (Linezolid) 600 Mg Tablet 600 MG PO BID Prescribed by: LOTUS FORDE MD Magnesium Citrate (Magnesium Citrate) 100 Mg Tablet 100 MG PO BID (Reported) Multivitamin (Multivitamins) 1 Each Capsule 1 EACH PO DAILY (Reported) Naproxen (Naproxen) 250 Mg Tablet 500 MG PO BIDWM Prescribed by: LOTUS FORDE MD Pantoprazole DR (Pantoprazole DR) 20 Mg Tablet.dr 20 MG PO DAILY Prescribed by: LOTUS FORDE MD Ubidecarenone (Coq-10) 100 Mg Capsule 100 MG PO DAILY (Reported) Vit B Comp/C/FA/Iron/Vit E (Vitamin B Complex Tablet) 1 Each Tablet 1 EACH PO DAILY (Reported) As needed oxyCODONE-Acetaminophen 5-325 mg (oxyCODONE-Acetaminophen 5-325 mg) 1 Each Tablet 1 TAB PO Q6H PRN PRN For Pain Prescribed by: LOTUS FORDE MD Additional med instructions Please take Linezolid 600mg twice a day for 10days. If this medicine cannot be covered then, take instead clindamycin 300mg four times per day for 10days. Please take Naproxen 500mg twice a day, You can take Pantoprazole 20mg daily with naproxen to avoid gastric ulcer if you become symptomatic. Followup Plan Disposition: home Discharge Diet: No restrictions Discharge Activity: No restrictions Patient Instructions You were hospitalized with elbow swelling, pain. You were treated with IV antibiotics and remained stable. Although the result of culture was negative, you improved with antibiotics and anti-inflammatory medicine. Please continue medicine as instructed above Please follow up with in 2weeks in the Orthopedic clinic. Follow-up Provider: Florentin Nina MD Follow-up with PCP in: 2 weeks Time spent 65min Lotus Forde MD Apr 16, 2017 13:17
== END 2017-04-15 16:30 | disposition home or self-care (01) ==
LOC: SED 12:08 → OSC 13:14 → INTOOBSV 13:14
PROVIDERS: ADMIT Internal Medicine; ATTEND Internal Medicine
DX: M70.22 Olecranon bursitis, left elbow (principal); L03.114 Cellulitis of left upper limb; Z86.14 Personal history of Methicillin resistant Staphylococcus aureus infection; J45.909 Unspecified asthma, uncomplicated; M19.90 Unspecified osteoarthritis, unspecified site
CPT/HCPCS: 36415; 80053; 80202; 83735; 84100; 84145; 85025; 85651; 87641; 96365; 96366; 96367; 96375; 96376; 99285; C8929; J0696; J1170; J1650; J1885; J2405; J2543; J3370; J7040; J7050